=== PATIENT | female | born 1975 | race Caucasian/White ===

== ENCOUNTER → 2016-11-13 | Outpatient (REF) | payer OTHER ==
[2016-11-13 14:07] LABS: ESTRADIOL 71.7 PG/ML; LUTEINIZING HORMONE 11.7 mIU/mL
[2016-11-13 14:08] LABS: FOLLICLE STIMULATING HORMONE 10.5 mIU/mL
[2016-11-17 00:07] LABS: ESTRONE SERUM 41 pg/mL (.); SEX HORMONE BINDING GLOBULIN 103.2 nmol/L (24.6-122.0)
== END ==
LOC: M LAB REF 13:11
PROVIDERS: ATTEND Obstetrics & Gynecology
DX: N95.8 Other specified menopausal and perimenopausal disorders (principal)

== ENCOUNTER → 2017-06-18 | Day surgery (SDC) | payer OTHER ==
[~2017-06-18] MED LIST: ACETAMINOPHEN 650 MG SUPP As Ordered; HYDROmorphone HCL 1 MG/ML SYRINGE (J1170) IV; IBUPROFEN 800 MG TAB PO; KETOROLAC 60 MG/2 ML VIAL (J1885) As Ordered; LIDOCAINE 2% INJ 100 MG/5 ML SDV (FOR ANES.) As Ordered; LIDOCAINE W/EPINEPHRINE 1% 20ML VIAL As Ordered; LR 1,000 ML IV; MIDAZOLAM INJ 2 MG/2 ML VIAL (J2250) As Ordered; ONDANSETRON 4MG/2ML VIAL (J2405) As Ordered; ONDANSETRON 4MG/2ML VIAL (J2405) IV; PERCOCET 5MG/325MG TAB PO; PROPOFOL 200 MG/20 ML VIAL As Ordered; dexameTHASONE 4 MG/ML 1ML VIAL (J1100) As Ordered; fentaNYL 100 MCG/2 ML INJECTION (J3010) As Ordered; fentaNYL 100 MCG/2 ML INJECTION (J3010) IV
[2017-06-18] MEDS: LR 1,000 ML IV (08:06)
[2017-06-18 08:10] LABS: HEMATOCRIT 35.2 % (36.0-47.0); HEMOGLOBIN 11.1 g/dl (12.0-16.0); MEAN CORPUSCULAR HEMOGLOBIN 29.8 pg (27.0-33.0); MEAN CORPUSCULAR HGB CONC 31.5 g/dl (32.0-36.5); MEAN CORPUSCULAR VOLUME 94.4 fl (80.0-96.0); PLATELET COUNT, AUTOMATED 324 10^3/uL (150-450); RED BLOOD COUNT 3.73 10^6/uL (4.00-5.40); RED CELL DISTRIBUTION WIDTH 13.6 % (11.5-14.5); WHITE BLOOD COUNT 6.2 10^3/uL (4.0-10.0)
[2017-06-18 08:25] LABS: CONTROL LINE HCG INT CTR LINE PRESENT; HCG, SERUM QUALITATIVE NEGATIVE (NEGATIVE)
[2017-06-18 08:30] LABS: ANION GAP 4 MEQ/L (8-16); BLOOD UREA NITROGEN 16 MG/DL (7-18); CALCIUM LEVEL 8.3 MG/DL (8.5-10.1); CARBON DIOXIDE LEVEL 29 MEQ/L (21-32); CHLORIDE LEVEL 108 MEQ/L (98-107); CREATININE FOR GFR 0.63 MG/DL (0.55-1.30); GLOMERULAR FILTRATION RATE > 60.0 (>58); GLUCOSE, FASTING 99 MG/DL (70-100); POTASSIUM SERUM 4.1 MEQ/L (3.5-5.1); SODIUM LEVEL 141 MEQ/L (136-145)
[2017-06-18] MEDS: ACETAMINOPHEN 650 MG SUPP PR (09:43)
== END | disposition home or self-care (01) ==
LOC: M SDC 07:33
DX: N92.0 Excessive and frequent menstruation with regular cycle (principal); N85.4 Malposition of uterus; E03.9 Hypothyroidism, unspecified; Z88.2 Allergy status to sulfonamides; Z79.899 Other long term (current) drug therapy
CPT/HCPCS: 58563

== ENCOUNTER → 2017-12-13 | Outpatient (REF) | payer OTHER ==
[2017-12-13 19:43] LABS: FERRITIN 10 NG/ML (8-252); IRON (FE) 35 UG/DL (50-170); PERCENT SATURATION 12.5 % (13.2-45.0); TOTAL IRON BINDING CAPACITY 279 UG/DL (250-450)
[2017-12-13 19:49] LABS: VITAMIN B12 LEVEL 268 PG/ML (247-911)
== END ==
LOC: M LAB REF 17:08
DX: D64.9 Anemia, unspecified (principal)
CPT/HCPCS: 83550

== ENCOUNTER → 2018-06-15 | Outpatient (REF) | payer OTHER ==
[~2018-06-15] MED LIST changes: -ACETAMINOPHEN 650 MG SUPP As Ordered; -HYDROmorphone HCL 1 MG/ML SYRINGE (J1170) IV; -IBUPROFEN 800 MG TAB PO; -KETOROLAC 60 MG/2 ML VIAL (J1885) As Ordered; -LIDOCAINE 2% INJ 100 MG/5 ML SDV (FOR ANES.) As Ordered; -LIDOCAINE W/EPINEPHRINE 1% 20ML VIAL As Ordered; -LR 1,000 ML IV; -MIDAZOLAM INJ 2 MG/2 ML VIAL (J2250) As Ordered; -ONDANSETRON 4MG/2ML VIAL (J2405) As Ordered; -ONDANSETRON 4MG/2ML VIAL (J2405) IV; +PERC5TAB12 PO; -PERCOCET 5MG/325MG TAB PO; -PROPOFOL 200 MG/20 ML VIAL As Ordered; +SYNT100T PO; +VITA500046 PO; -dexameTHASONE 4 MG/ML 1ML VIAL (J1100) As Ordered; -fentaNYL 100 MCG/2 ML INJECTION (J3010) As Ordered; -fentaNYL 100 MCG/2 ML INJECTION (J3010) IV
[2018-06-15 13:15] LABS: PERCENT SATURATION 27.5 % (13.2-45.0)
== END ==
LOC: M LAB REF 12:38
PROVIDERS: ATTEND Internal Medicine
DX: D50.9 Iron deficiency anemia, unspecified (principal)

== ENCOUNTER → 2019-01-16 | Outpatient (REF) | payer OTHER ==
[2019-01-16 17:11] LABS: PERCENT SATURATION 18.8 % (13.2-45.0)
== END ==
LOC: M LAB REF 16:29
PROVIDERS: ATTEND Internal Medicine
DX: D50.9 Iron deficiency anemia, unspecified (principal)

== ENCOUNTER → 2019-01-17 | Outpatient (REF) | payer OTHER | LOC: M LAB REF 13:23 | PROVIDERS: ATTEND Internal Medicine | DX: D56.8 Other thalassemias (principal) ==

== ENCOUNTER → 2020-01-18 | Outpatient (REF) | payer OTHER ==
[2020-01-18 19:34] LABS: PERCENT SATURATION 13.2 % (13.2-45.0)
== END ==
LOC: M LAB REF 17:23
PROVIDERS: ATTEND Internal Medicine
DX: D50.9 Iron deficiency anemia, unspecified (principal)

== ENCOUNTER → 2020-07-23 | Outpatient (REF) | payer OTHER ==
[2020-07-23 18:31] LABS: PERCENT SATURATION 24.9 % (13.2-45.0)
== END ==
LOC: M LAB REF 16:23
PROVIDERS: ATTEND Internal Medicine
DX: D50.9 Iron deficiency anemia, unspecified (principal)

== ENCOUNTER → 2021-01-23 | Outpatient (REF) | payer OTHER ==
[2021-01-23 17:49] LABS: PERCENT SATURATION 38.6 % (13.2-45.0)
== END ==
LOC: M LAB REF 16:43
PROVIDERS: ATTEND Internal Medicine
DX: D50.9 Iron deficiency anemia, unspecified (principal)

== ENCOUNTER → 2021-04-09 | Outpatient (CLI) | payer OTHER | LOC: M WHC 16:03 | PROVIDERS: ATTEND Obstetrics & Gynecology | DX: R92.2 Inconclusive mammogram (principal) ==

== ENCOUNTER → 2021-04-29 | Outpatient (CLI) | payer OTHER ==
--- NOTE | 2021-04-29 15:45 | REP ---
INDICATION: LEFT BREAST ADD VIEWS. COMPARISON: 04/09/2021 as well as other prior exams. TECHNIQUE: Multiple spot compression tomographic images performed of the left breast. FINDINGS: The suspected dank density in the upper-outer quadrant of the left breast compresses out to an unchanged appearance compared to other prior exams. There is no persistent nodule or architectural distortion. IMPRESSION: BIRADS/ACR category 1, negative mammogram left breast. No persistent nodule or architectural distortion on today's spot compression views of the left breast. This mammogram was interpreted with the aid of an FDA-approved computer-aided detection system. The patient letter being requested is M 1. RECOMMENDATION: Repeat screening mammography recommended 1 year (for women over 40). <Electronically signed by Haseeb Metzger > 04/29/21 [id number]
== END ==
LOC: M WHC 14:59
PROVIDERS: ATTEND Obstetrics & Gynecology
DX: Z12.31 Encounter for screening mammogram for malignant neoplasm of breast (principal)
CPT/HCPCS: 77065; G0279

== ENCOUNTER → 2021-07-24 | Outpatient (REF) | payer OTHER ==
[2021-07-24 18:24] LABS: PERCENT SATURATION 31.9 % (13.2-45.0)
== END ==
LOC: M LAB REF 16:11
PROVIDERS: ATTEND Internal Medicine
DX: D50.9 Iron deficiency anemia, unspecified (principal)

== ENCOUNTER → 2022-04-10 | Outpatient (CLI) | payer BC, OTHER, SELFPAY | LOC: M WHC 13:15 | PROVIDERS: ATTEND Obstetrics & Gynecology | DX: Z12.31 Encounter for screening mammogram for malignant neoplasm of breast (principal) ==

== ENCOUNTER → 2022-04-22 | Outpatient (CLI) | payer BC | LOC: M WHC 13:51 | PROVIDERS: ATTEND Obstetrics & Gynecology | DX: R92.2 Inconclusive mammogram (principal) ==

== ENCOUNTER → 2023-07-30 | Outpatient (CLI) | payer BC | LOC: M WHC 08:04 | PROVIDERS: ATTEND Internal Medicine | DX: Z12.31 Encounter for screening mammogram for malignant neoplasm of breast (principal) ==

== ENCOUNTER → 2023-09-29 | Outpatient (REF) | payer BC | LOC: M SFHCWAGY 18:05 | PROVIDERS: ATTEND Nurse Practitioner Family | DX: Z12.4 Encounter for screening for malignant neoplasm of cervix (principal); R87.610 Atypical squamous cells of undetermined significance on cytologic smear of cervix (ASC-US) ==

== ENCOUNTER 2025-01-01 06:48 | Day surgery (SDC) | payer BC ==
[~2025-01-01] VITALS: Ht 160 cm; Wt 77.7 kg
[~2025-01-01 06:48] MED LIST changes: +SYNT150T PO
[2025-01-01] MEDS ORDERED: LIDOCAINE 2% INJ 100 MG/5 ML SYRINGE As Ordered ONE (07:28)
[2025-01-01 07:51] VITALS: TEMP 98.4
[2025-01-01 08:12] VITALS: BP 105/62; O2SAT 99
== END 2025-01-01 08:19 | disposition home or self-care (01) ==
LOC: M OPP 06:48
PROVIDERS: ATTEND Surgery
DX: R13.10 Dysphagia, unspecified (principal); Z88.2 Allergy status to sulfonamides; Z79.899 Other long term (current) drug therapy

== ENCOUNTER → 2025-03-30 | Outpatient (CLI) | payer BC | LOC: M PLARAD 13:58 | PROVIDERS: ATTEND Orthopaedic Surgery | DX: M65.842 Other synovitis and tenosynovitis, left hand (principal) ==

== ENCOUNTER → 2025-04-16 | Outpatient (REF) | payer BC ==
[2025-04-16 16:56] LABS: FREE T4 1.59 NG/DL (0.89-1.76)
== END ==
LOC: M LAB REF 15:26
PROVIDERS: ATTEND Internal Medicine
DX: E03.9 Hypothyroidism, unspecified (principal)